=== PATIENT | male | born 1985 | race Caucasian/White ===

== ENCOUNTER 2016-09-02 11:10 | Outpatient (CLI) | payer OTHER | END 2016-09-02 11:11 | disposition home or self-care (01) | DX: I48.0 Paroxysmal atrial fibrillation (principal); I50.20 Unspecified systolic (congestive) heart failure ==

== ENCOUNTER 2017-01-17 10:46 | Emergency (ER) | payer SELFPAY ==
[2017-01-17] MEDS: diltiaZEM INJ 5 MG/ML VIAL IVP STA (11:31)
[2017-01-17] MEDS ORDERED: SODIUM CHLORIDE FLUSH 0.9% 10 ML SYRINGE IVP ONE (11:32)
[2017-01-17] MEDS ORDERED: diltiaZEM INJ 5 MG/ML VIAL ONE (11:32)
[2017-01-17 11:36] LABS: BASOPHILS % (AUTO) 0.3 %; EOSINOPHILS # (AUTO) 0.1 10^3/uL (0.0-0.7); EOSINOPHILS % (AUTO) 1.4 %; HCT - HEMATOCRIT 47.3 % (42.0-52.0); HGB - HEMOGLOBIN 15.9 g/dL (14.0-18.0); LYMPHOCYTES # (AUTO) 2.1 10^3/uL (1.5-3.5); LYMPHOCYTES % (AUTO) 22.7 %; MEAN CORPUSCULAR HEMOGLOBIN 26.1 pg (27.0-31.0); MEAN CORPUSCULAR HGB CONC 33.6 g/dL (32.0-36.0); MEAN CORPUSCULAR VOLUME 77.6 fL (80.0-94.0); MEAN PLATELET VOLUME 10.5 fL (7.4-11.4); MONOCYTES # (AUTO) 0.6 10^3/uL (0.0-1.0); NEUTROPHILS # (AUTO) 6.3 10^3/uL (1.5-6.6); NEUTROPHILS % (AUTO) 68.6 %; NUCLEATED RED BLOOD CELLS AUTO 0.1 /100WBC; RED BLOOD COUNT 6.09 10^6/uL (4.70-6.10); RED CELL DISTRIBUTION WIDTH 13.6 % (12.0-15.0); UNCORRECTED WHITE BLOOD COUNT 9.2 x10^3/uL; WHITE BLOOD COUNT 9.2 x10^3/uL (4.8-10.8)
[2017-01-17 11:45] LABS: ALBUMIN/GLOBULIN RATIO 1.4 (1.0-2.2); CALCIUM 10.3 mg/dL (8.5-10.3); POTASSIUM 4.1 mmol/L (3.5-5.0)
[2017-01-17] MEDS: SODIUM CHLORIDE 0.9% 1,000 ML IV ONE (12:34)
--- NOTE | 2017-01-17 12:40 | XRAY Preliminary Report ---
Exam: XR Chest 2 View PA/LAT IMPRESSION: Normal 2-view chest radiography. [facility] SITE ID: [id number]
--- NOTE | 2017-01-17 12:43 | XRAY Report ---
EXAM: CHEST RADIOGRAPHY EXAM DATE: 01/17/2017 11:58 AM. CLINICAL HISTORY: Rapid afib cough. COMPARISON: None. TECHNIQUE: 2 views. FINDINGS: Lungs/Pleura: No focal opacities evident. No pleural effusion. No pneumothorax. Normal volumes. Mediastinum: Heart and mediastinal contours are unremarkable. Other: None. IMPRESSION: Normal 2-view chest radiography. [facility] Referring Provider Line: [phone] SITE ID: [id number]
[2017-01-17] MEDS ORDERED: PROPOFOL 200 MG/20 ML VIAL IVP ONE (14:13)
[2017-01-17] MEDS: PROPOFOL 200 MG/20 ML VIAL IVP STA (14:20)
[2017-01-17 14:36] VITALS: BP 118/74
[2017-01-17] MEDS ORDERED: DEXAMETHASONE 10 MG/ML VIAL ONE (14:45)
--- NOTE | 2017-01-17 14:58 | ED Physician Documentation ---
History of Present Illness - Stated complaint Stated Complaint: RACING HEART - Chief complaint Chief Complaint: Cardiac - History obtained from History obtained from: Patient, Family - History of Present Illness Timing: Today - Additonal information Additional information: 31-year-old male with a history of atrial fibrillation once previously woke this morning feeling a rapid irregular heart. He has some mild dyspnea on exertion associated with this. He does state that he checks his pulse frequently on his neck since this episode in October. He has not been in atrial fibrillation to his knowledge since October. He does indicate that he has been ill recently with a cough and congestion and has been taking some [id number] decongestant. He denies excessive use of any medications.He did have excessive use of energy drinks in October. In that episode he was cardioverted at [facility]. Review of Systems Constitutional: denies: Fever, Chills Eyes: denies: Decreased vision Ears: reports: Loss of hearing, Ear pain Nose: reports: Rhinorrhea / runny nose, Congestion Throat: denies: Sore throat Cardiac: reports: Palpitations. denies: Chest pain / pressure Respiratory: reports: Dyspnea, Cough GI: denies: Abdominal Pain, Nausea, Vomiting : denies: Dysuria, Frequency PD PAST MEDICAL HISTORY - Past Medical History Past Medical History: Yes Cardiovascular: Atrial fibrillation Respiratory: Asthma - Past Surgical History Past Surgical History: Yes HEENT: Tonsil/Adenoidectomy - Present Medications Home Medications: Ambulatory Orders Medication Instructions Recorded Confirmed Albuterol 1 puffs PO PRN 01/17/17 Azithromycin [Zithromax] 250 mg PO DAILY #6 tablet 01/17/17 Metoprolol Tartrate 25 mg PO DAILY 01/17/17 01/17/17 Montelukast [Singulair] 10 mg PO DAILY 01/17/17 01/17/17 - Allergies Allergies/Adverse Reactions: Allergies Allergy/AdvReac Type Severity Reaction Status Date / Time No Known Drug Allergies Allergy Verified 01/17/17 10:50 - Social History Does the pt smoke?: No Smoking Status: Current every day smoker Does the pt drink ETOH?: No Does the pt have substance abuse?: No PD ED PE NORMAL - Vitals Vital signs reviewed: Yes (tachy ) - General General: Alert and oriented X 3, No acute distress, Well developed/nourished - HEENT HEENT: Atraumatic, PERRL, EOMI, Other (both TM's are inflamed the left is much more inflamed than the right. ) - Neck Neck: Supple, no meningeal sign, No bony TTP - Cardiac Cardiac: No murmur, Other (irregularly irregular and rapid) - Respiratory Respiratory: No respiratory distress, Clear bilaterally - Abdomen Abdomen: Soft, Non tender - Back Back: No CVA TTP, No spinal TTP - Derm Derm: Normal color, No rash - Extremities Extremities: No deformity, No edema - Neuro Neuro: No motor deficit, No sensory deficit - Psych Psych: Normal mood, Normal affect Results - Vitals Vitals: Vital Signs - 24 hr 01/17/17 01/17/17 01/17/17 10:48 11:10 11:32 Temperature 35.9 C L Heart Rate 122 H 155 H 114 H Respiratory 18 21 13 Rate Blood Pressure 120/78 102/71 107/74 O2 Saturation 95 95 95 01/17/17 01/17/17 01/17/17 11:36 11:37 11:56 Temperature Heart Rate 108 H 100 98 Respiratory 23 18 16 Rate Blood Pressure 93/59 L 102/64 108/62 O2 Saturation 95 96 96 01/17/17 01/17/17 01/17/17 12:34 12:54 14:07 Temperature Heart Rate 98 104 H 88 Respiratory 16 15 Rate Blood Pressure 88/66 L 94/56 L 105/75 O2 Saturation 96 98 97 01/17/17 01/17/17 01/17/17 14:15 14:20 14:23 Temperature Heart Rate 109 H 119 H 120 H Respiratory 16 18 11 L Rate Blood Pressure 111/88 H 105/77 O2 Saturation 96 92 01/17/17 01/17/17 01/17/17 14:29 14:35 14:36 Temperature Heart Rate 76 78 70 Respiratory 15 16 16 Rate Blood Pressure 101/69 118/74 118/74 O2 Saturation 97 97 97 Oxygen O2 Source Room air - EKG (time done) 1057 Rate: Rate (enter#) (151) Rhythm: Atrial fibrillation Ischemia: Non specific changes Compare to prior EKG: Old EKG unavailable Computer interpretation: Agree with computer 1431 Rate: Rate (enter#) (76) Rhythm: NSR Compare to prior EKG: Other (SPT earlier today the rhythm has converted. ) Computer interpretation: Agree with computer - Labs Labs: Laboratory Tests 01/17/17 01/17/17 01/17/17 11:05 11:05 11:05 WBC 9.2 RBC 6.09 Hgb 15.9 Hct 47.3 MCV 77.6 L MCH 26.1 L MCHC 33.6 RDW 13.6 Plt Count 200 MPV 10.5 Neut # 6.3 Lymph # 2.1 [place] # 0.6 Eos # 0.1 Baso # 0.0 Absolute Nucleated RBC 0.01 Nucleated RBCs 0.1 Sodium 140 Potassium 4.1 Chloride 105 Carbon Dioxide 25 Anion Gap 10.0 BUN 17 Creatinine 1.0 Estimated GFR (MDRD) 87 L Glucose 109 H Calcium 10.3 Total Bilirubin 1.0 AST 54 H ALT 107 H Alkaline Phosphatase 116 Troponin I < 0.04 Total Protein 8.0 Albumin 4.6 Globulin 3.4 Albumin/Globulin Ratio 1.4 Lipase 20 L - Rads (name of study) 2 view chest Radiology: Prelim report reviewed (Impression: Normal two-view chest radiography.) Procedures - Procedural sedation Sedation prep: Informed consent, Time out completed, PE performed, AHA 1 - healthy, IV O2 monitor, ET CO2 monitor, RT present Sedation medications: propofol, given by MD Patient status during sedation: Responds to tactile, Maintained airway Sedation recovery: Recovered uneventfully, Back to baseline - Cardioversion Attempt 1 Time of attempt: 14:19 Risks, benefits, alternatives explained to: Pt Prep: IV, O2, resistance brazer, Pulse ox, Airway equip Meds: Propofol CS via: Anterolateral Sync: Biphasic, 100j Post cardioversion rhythm: A-fib Performed by: ED Attempt 2 Time of attempt: 14:22 Indication: Tachyarrhythmia Risks, benefits, alternatives explained to: Pt Prep: IV, O2, resistance brazer, Pulse ox, Airway equip Meds: Propofol CS via: Anterolateral Sync: Biphasic, 150j Post cardioversion rhythm: NSR Performed by: ED PD MEDICAL DECISION MAKING - ED course Complexity details: reviewed results, re-evaluated patient, considered differential, d/w patient, d/w family ED course: 31-year-old male with acute atrial fibrillation and rapid ventricular response is given intravenous diltiazem with reduction in his rate and he does not convert after several hours in the emergency department he is administered 100 mg of propofol and converted with synchronized shock at 150 J. Initial shock at 100 J synchronized did not work. The patient has had a cough for 10 days and on exam has OM on the left. He is given a dose of decadron here as well. Departure - Departure Disposition: 01 Home, Self Care Clinical Impression: Atrial fibrillation Qualifiers: Atrial fibrillation type: paroxysmal Qualified Code(s): I48.0 - Paroxysmal atrial fibrillation Otitis media Qualifiers: Otitis media type: suppurative Laterality: bilateral Chronicity: acute Recurrence: not specified as recurrent Spontaneous tympanic membrane rupture: without spontaneous rupture Qualified Code(s): H66.003 - Acute suppurative otitis media without spontaneous rupture of ear drum, bilateral Condition: Stable Instructions: ED Afib, ED Otitis Media Acute Adult Follow-Up: Hanh Lowe PA-C [Primary Care Provider] - Prescriptions: Azithromycin [Zithromax] 250 mg PO DAILY #6 tablet Comments: Today it appears he was in atrial fibrillation with a rapid ventricular response and required 150 J of synchronized energy to convert your rhythm. In the future avoid medications with stimulatory effects. Atrial fibrillation will require a follow up appointment with a business solution analyst. In addition it appears the cold you have has resulted in a middle ear infection and you will need to be on an antibiotic for 5 days. Discharge Date/Time: 01/17/17 15:19
[2017-01-17] MEDS: DEXAMETHASONE 10 MG/ML VIAL PO STA (15:08)
== END 2017-01-17 15:19 | disposition home or self-care (01) ==
LOC: ED 10:46
DX: I48.0 Paroxysmal atrial fibrillation (principal); H66.003 Acute suppurative otitis media without spontaneous rupture of ear drum, bilateral; J45.909 Unspecified asthma, uncomplicated; F17.200 Nicotine dependence, unspecified, uncomplicated
CPT/HCPCS: 36415; 71020; 80053; 83690; 84484; 85025; 92960; 93005; 94770; 96374; 99152; 99284

== ENCOUNTER 2017-06-21 15:15 | Outpatient (CLI) | payer OTHER ==
[2017-06-21 19:11] LABS: BASOPHILS % (AUTO) 0.5 %; EOSINOPHILS # (AUTO) 0.2 10^3/uL (0.0-0.7); EOSINOPHILS % (AUTO) 3.3 %; HGB - HEMOGLOBIN 13.7 g/dL (14.0-18.0); LYMPHOCYTES # (AUTO) 1.8 10^3/uL (1.5-3.5); LYMPHOCYTES % (AUTO) 31.9 %; MEAN CORPUSCULAR HEMOGLOBIN 26.2 pg (27.0-31.0); MEAN CORPUSCULAR HGB CONC 32.7 g/dL (32.0-36.0); MEAN CORPUSCULAR VOLUME 79.9 fL (80.0-94.0); MONOCYTES # (AUTO) 0.4 10^3/uL (0.0-1.0); MONOCYTES % (AUTO) 6.6 %; NEUTROPHILS # (AUTO) 3.3 10^3/uL (1.5-6.6); NEUTROPHILS % (AUTO) 57.7 %; PLT - PLATELET COUNT 157 10^3/uL (130-450); RED BLOOD COUNT 5.25 10^6/uL (4.70-6.10); RED CELL DISTRIBUTION WIDTH 13.5 % (12.0-15.0); WHITE BLOOD COUNT 5.8 x10^3/uL (4.8-10.8)
[2017-06-21 19:38] LABS: % IRON SATURATION 15 % (20-50); ALBUMIN 4.1 g/dL (3.2-5.5); ALBUMIN/GLOBULIN RATIO 1.4 (1.0-2.2); ALKALINE PHOSPHATASE 62 IU/L (42-121); ALT ALANINE AMINOTRANSFERASE 31 IU/L (10-60); AST ASPARTATE AMINOTRANSFERASE 16 IU/L (10-42); BILIRUBIN,TOTAL 0.3 mg/dL (0.2-1.0); BUN - BLOOD UREA NITROGEN 13 mg/dL (6-20); CALCIUM 9.1 mg/dL (8.5-10.3); CARBON DIOXIDE - CO2 27 mmol/L (21-32); CHLORIDE 107 mmol/L (101-111); CHOL/HDL RATIO 6.5 (<5.0); CHOLESTEROL 207 mg/dL; CREATININE 0.8 mg/dL (0.6-1.2); GFR - MDRD 112 (>89); GLUCOSE 79 mg/dL (70-100); HDL CHOLESTEROL 32 mg/dL; IRON 53 ug/dL (45-182); LDL CHOLESTEROL,CALCULATED 130 mg/dL; LDL/HDL RATIO 4.1 (<3.6); SODIUM 137 mmol/L (135-145); TOTAL IRON BINDING CAPACITY 346 ug/dL (250-450); TOTAL PROTEIN 7.1 g/dL (6.7-8.2); TRANSFERRIN 247 mg/dL (180-329); VLDL CHOLESTEROL 45 mg/dL
[2017-06-22 12:42] LABS: HEPATITIS B SURFACE ANTIGEN NON-REACTIVE (NON-REACTIVE)
[2017-06-22 15:27] LABS: HEPATITIS C ANTIBODY NON-REACTIVE (NON-REACTIVE)
== END 2017-06-21 15:16 ==
LOC: LAB.WCP 15:15
PROVIDERS: ATTEND Physician Assistant Medical
DX: Z51.81 Encounter for therapeutic drug level monitoring (principal); R74.8 Abnormal levels of other serum enzymes; I48.0 Paroxysmal atrial fibrillation
CPT/HCPCS: 36415; 80053; 80061; 83540; 84443; 84466; 85025; 86317; 86704; 86803; 87340

== ENCOUNTER 2017-08-29 22:29 | Emergency (ER) | payer OTHER ==
[2017-08-29] MEDS ORDERED: PROCAINAMIDE 1,000 MG in SODIUM CHLORIDE 0.9% 240 ML IV STA (22:49)
[2017-08-29] MEDS ORDERED: SODIUM CHLORIDE 0.9% 1,000 ML IV ONE (22:49)
[2017-08-29 22:56] LABS: BASOPHILS # (AUTO) 0.1 10^3/uL (0.0-0.1); BASOPHILS % (AUTO) 0.7 %; EOSINOPHILS # (AUTO) 0.2 10^3/uL (0.0-0.7); EOSINOPHILS % (AUTO) 2.7 %; HGB - HEMOGLOBIN 15.3 g/dL (14.0-18.0); LYMPHOCYTES # (AUTO) 2.9 10^3/uL (1.5-3.5); LYMPHOCYTES % (AUTO) 30.7 %; MEAN CORPUSCULAR HEMOGLOBIN 26.8 pg (27.0-31.0); MEAN CORPUSCULAR HGB CONC 34.4 g/dL (32.0-36.0); MEAN CORPUSCULAR VOLUME 78.1 fL (80.0-94.0); MEAN PLATELET VOLUME 10.3 fL (7.4-11.4); MONOCYTES # (AUTO) 0.7 10^3/uL (0.0-1.0); MONOCYTES % (AUTO) 7.1 %; NEUTROPHILS # (AUTO) 5.5 10^3/uL (1.5-6.6); NEUTROPHILS % (AUTO) 58.8 %; PLT - PLATELET COUNT 173 10^3/uL (130-450); RED BLOOD COUNT 5.72 10^6/uL (4.70-6.10); RED CELL DISTRIBUTION WIDTH 13.5 % (12.0-15.0); WHITE BLOOD COUNT 9.3 x10^3/uL (4.8-10.8)
[2017-08-29] MEDS ORDERED: PROPOFOL 200 MG/20 ML VIAL IVP ONE (23:45)
[2017-08-29] MEDS ORDERED: fentaNYL 100 MCG/2 ML VIAL ONE (23:45)
[2017-08-29 23:51] LABS: ALBUMIN 4.4 g/dL (3.2-5.5); ALBUMIN/GLOBULIN RATIO 1.7 (1.0-2.2); CALCIUM 9.2 mg/dL (8.5-10.3); CREATININE 1.1 mg/dL (0.6-1.2); PHOSPHORUS 2.8 mg/dL (2.5-4.6)
[2017-08-29 23:53] LABS: BILIRUBIN,TOTAL 0.6 mg/dL (0.2-1.0); MAGNESIUM 2.1 mg/dL (1.7-2.8)
[2017-08-30] MEDS ORDERED: PROPOFOL 200 MG/20 ML VIAL IVP ONE (01:50)
--- NOTE | 2017-08-30 02:19 | ED Physician Documentation ---
PD HPI CHEST PAIN - Stated complaint Stated Complaint: CHEST PX - Chief complaint Chief Complaint: Cardiac - History obtained from History obtained from: Patient, Family - History of Present Illness Timing - onset: Today Timing - details: Abrupt onset, Still present Quality: Pressure Associated symptoms: Palpitations Similar symptoms before: Work up / diagnostics, Treatment Recently seen: Not recently seen - Additional information Additional information: Patient is a 32 year old male with a history of a fib who is presenting to the emergency department for chest pain and palpitations. According to patient and family patient woke from sleep with his heart racing and chest pressure. Patient states that he has been compliant with his A fib. He reports that most of the time he has to get shocked out of it. Review of Systems Constitutional: denies: Fever, Chills Eyes: reports: Reviewed and negative Ears: reports: Reviewed and negative Nose: reports: Reviewed and negative Throat: reports: Reviewed and negative Cardiac: reports: Chest pain / pressure, Palpitations Respiratory: denies: Dyspnea, Cough GI: denies: Abdominal Pain, Nausea, Vomiting : reports: Reviewed and negative Skin: reports: Reviewed and negative Musculoskeletal: reports: Reviewed and negative Neurologic: denies: Generalized weakness, Focal weakness, Numbness Immunocompromised: denies: Immunocompromised PD PAST MEDICAL HISTORY - Past Medical History Past Medical History: Yes Cardiovascular: Atrial fibrillation Respiratory: Asthma, Sleep apnea Neuro: None Endocrine/Autoimmune: None GI: GERD : None HEENT: None Psych: None Musculoskeletal: None Derm: None - Past Surgical History Past Surgical History: Yes HEENT: Tonsil/Adenoidectomy - Present Medications Home Medications: Ambulatory Orders Medication Instructions Recorded Confirmed Albuterol 1 puffs PO PRN 01/17/17 Azithromycin [Zithromax] 250 mg PO DAILY #6 tablet 01/17/17 Metoprolol Tartrate 25 mg PO DAILY 01/17/17 01/17/17 Montelukast [Singulair] 10 mg PO DAILY 01/17/17 01/17/17 - Allergies Allergies/Adverse Reactions: Allergies Allergy/AdvReac Type Severity Reaction Status Date / Time No Known Drug Allergies Allergy Verified 08/29/17 22:42 - Social History Does the pt smoke?: No Smoking Status: Never smoker Does the pt drink ETOH?: No Does the pt have substance abuse?: No - Immunizations Immunizations are current?: Yes - POLST Patient has POLST: No PD ED PE NORMAL - General General: Alert and oriented X 3 - HEENT HEENT: Atraumatic - Neck Neck: Supple, no meningeal sign - Respiratory Respiratory: No respiratory distress - Abdomen Abdomen: Soft, Non tender, Non distended - Derm Derm: Normal color, Warm and dry, No rash - Extremities Extremities: No deformity, No calf tenderness / cord - Neuro Neuro: Alert and oriented X 3, No motor deficit, No sensory deficit, Normal speech Eye Opening: Spontaneous Motor: Obeys Commands Verbal: Oriented GCS Score: 15 - Psych Psych: Normal mood PD ED PE EXPANDED - General General: Alert - HEENT HEENT: Dry mucous membranes Results - Vitals Vitals: Vital Signs - 24 hr 08/29/17 08/29/17 08/29/17 22:35 22:47 23:13 Temperature 36.4 C L Heart Rate 132 H 133 H 138 H Respiratory 18 20 22 Rate Blood Pressure 127/88 H O2 Saturation 99 97 97 08/29/17 08/29/17 08/29/17 23:15 23:22 23:32 Temperature Heart Rate 139 H 129 H Respiratory 17 18 Rate Blood Pressure 106/84 H 96/76 O2 Saturation 97 98 08/29/17 08/29/17 08/29/17 23:41 23:46 23:51 Temperature Heart Rate 122 H 140 H 125 H Respiratory 17 18 16 Rate Blood Pressure 121/88 H 102/79 O2 Saturation 98 98 98 08/30/17 08/30/17 08/30/17 00:07 00:22 01:12 Temperature Heart Rate 131 H 128 H 141 H Respiratory 16 15 16 Rate Blood Pressure 102/76 108/89 H 111/85 H O2 Saturation 99 99 100 08/30/17 08/30/17 08/30/17 01:20 01:21 01:23 Temperature Heart Rate 147 H 149 H Respiratory 17 20 Rate Blood Pressure 100/74 O2 Saturation 95 96 08/30/17 08/30/17 08/30/17 01:24 01:26 01:27 Temperature Heart Rate 139 H 141 H 143 H Respiratory 18 17 Rate Blood Pressure 85/64 L 106/66 O2 Saturation 98 95 98 08/30/17 08/30/17 08/30/17 01:31 01:34 01:36 Temperature Heart Rate 150 H 137 H 133 H Respiratory 14 18 Rate Blood Pressure 108/76 91/66 O2 Saturation 98 97 95 08/30/17 08/30/17 08/30/17 01:38 01:40 01:56 Temperature Heart Rate 133 H 137 H 136 H Respiratory 16 22 18 Rate Blood Pressure 87/66 L O2 Saturation 96 97 99 08/30/17 08/30/17 08/30/17 01:58 02:00 02:01 Temperature Heart Rate 130 H 148 H Respiratory 15 Rate Blood Pressure 121/62 110/71 O2 Saturation 08/30/17 08/30/17 08/30/17 02:04 02:05 02:09 Temperature Heart Rate 85 88 95 Respiratory 20 18 15 Rate Blood Pressure 96/57 L 113/74 O2 Saturation 99 97 08/30/17 02:10 Temperature Heart Rate Respiratory 16 Rate Blood Pressure O2 Saturation Oxygen O2 Source Nasal cannula - Labs Labs: Laboratory Tests 08/29/17 08/29/17 08/29/17 22:39 22:39 22:39 WBC 9.3 RBC 5.72 Hgb 15.3 Hct 44.7 MCV 78.1 L MCH 26.8 L MCHC 34.4 RDW 13.5 Plt Count 173 MPV 10.3 Neut # 5.5 Lymph # 2.9 [place] # 0.7 Eos # 0.2 Baso # 0.1 Absolute Nucleated RBC 0.01 Nucleated RBC % 0.1 Sodium 137 Potassium 4.0 Chloride 105 Carbon Dioxide 23 Anion Gap 9.0 BUN 21 H Creatinine 1.1 Estimated GFR (MDRD) 78 L Glucose 105 H Calcium 9.2 Phosphorus 2.8 Magnesium 2.1 Total Bilirubin 0.6 AST 23 ALT 46 Alkaline Phosphatase 71 Troponin I < 0.04 Total Protein 7.0 Albumin 4.4 Globulin 2.6 Albumin/Globulin Ratio 1.7 Lipase 16 L TSH 08/29/17 22:39 WBC RBC Hgb Hct MCV MCH MCHC RDW Plt Count MPV Neut # Lymph # [place] # Eos # Baso # Absolute Nucleated RBC Nucleated RBC % Sodium Potassium Chloride Carbon Dioxide Anion Gap BUN Creatinine Estimated GFR (MDRD) Glucose Calcium Phosphorus Magnesium Total Bilirubin AST ALT Alkaline Phosphatase Troponin I Total Protein Albumin Globulin Albumin/Globulin Ratio Lipase TSH 3.16 Procedures - Cardioversion Attempt 1 Time of attempt: 02:00 Indication: Tachyarrhythmia Risks, benefits, alternatives explained to: Pt, POA Prep: IV, O2, supervisor international reservations, Pulse ox, Airway equip Meds: Fentanyl, Propofol CS via: Pads Sync: Monophasic, 200j Post cardioversion rhythm: NSR Complications: No: Contact burn, Apnea, Hypotension Performed by: ED MD PD MEDICAL DECISION MAKING - ED course Complexity details: reviewed old records, reviewed results, re-evaluated patient , considered differential, d/w patient, d/w family ED course: Patient was seen and examined at bedside. IV access was gained, labs were drawn. ekg was performed and patient was found to be in A-fib. Procainamide drip of 1000mg over an hour was attempted without conversion. It was decided to elctrically cardiovert the patient. (see note) Patient was successfully cardioverted with conscious sedation at 200joules. patient tolerated the treatment well and was stable for discharge with outpatient follow up. Departure - Departure Disposition: 01 Home, Self Care Clinical Impression: Atrial fibrillation Condition: Good Instructions: Atrial Fibrillation Dc Follow-Up: Phillip Dorman MD [Physician No Access] - Comments: Your symptoms today were being caused by a fib, which has resolved. You should continue with your medications as prescribed. You should follow up with your heart doctor for further evaluation and care. You may return to the emergency department at any time for new, worsening or uncontrollable symptoms. Forms: Activity restrictions
[2017-08-30 02:22] VITALS: BP 91/76
== END 2017-08-30 02:35 | disposition home or self-care (01) ==
LOC: ED 22:29
DX: I48.91 Unspecified atrial fibrillation (principal)
CPT/HCPCS: 36415; 80053; 83690; 83735; 84100; 84443; 84484; 85025; 96365; 99284; 99285; J2690; 92960; 93005

== ENCOUNTER 2017-09-05 13:00 | Outpatient (CLI) | payer OTHER | END 2017-09-05 13:01 | disposition home or self-care (01) | LOC: SC 13:00 | PROVIDERS: ATTEND Internal Medicine Pulmonary Disease | DX: G47.33 Obstructive sleep apnea (adult) (pediatric) (principal) | CPT/HCPCS: 99203; 99212 ==

== ENCOUNTER 2017-10-22 21:16 | Outpatient (CLI) | payer OTHER | END 2017-10-22 21:17 | disposition home or self-care (01) | LOC: SC 21:16 | PROVIDERS: ATTEND Internal Medicine Pulmonary Disease | DX: G47.33 Obstructive sleep apnea (adult) (pediatric) (principal); I48.91 Unspecified atrial fibrillation | CPT/HCPCS: 95810 ==

== ENCOUNTER 2017-10-23 01:45 | Emergency (ER) | payer OTHER ==
[2017-10-23] MEDS ORDERED: fentaNYL 100 MCG/2 ML VIAL IVP STA (01:55)
[2017-10-23] MEDS ORDERED: PROPOFOL 200 MG/20 ML VIAL IVP STA (01:55)
[2017-10-23 02:21] LABS: BASOPHILS % (AUTO) 0.6 %; EOSINOPHILS # (AUTO) 0.3 10^3/uL (0.0-0.7); EOSINOPHILS % (AUTO) 3.6 %; HGB - HEMOGLOBIN 15.9 g/dL (14.0-18.0); LYMPHOCYTES % (AUTO) 33.8 %; MEAN CORPUSCULAR HEMOGLOBIN 26.4 pg (27.0-31.0); MEAN CORPUSCULAR HGB CONC 34.1 g/dL (32.0-36.0); MEAN CORPUSCULAR VOLUME 77.4 fL (80.0-94.0); MEAN PLATELET VOLUME 10.8 fL (7.4-11.4); MONOCYTES # (AUTO) 0.9 10^3/uL (0.0-1.0); MONOCYTES % (AUTO) 10.2 %; NEUTROPHILS # (AUTO) 4.6 10^3/uL (1.5-6.6); NEUTROPHILS % (AUTO) 51.8 %; PLT - PLATELET COUNT 155 10^3/uL (130-450); RED BLOOD COUNT 6.03 10^6/uL (4.70-6.10); RED CELL DISTRIBUTION WIDTH 13.8 % (12.0-15.0); WHITE BLOOD COUNT 8.9 x10^3/uL (4.8-10.8)
[2017-10-23 02:40] LABS: ALBUMIN 4.5 g/dL (3.2-5.5); ALBUMIN/GLOBULIN RATIO 1.4 (1.0-2.2); BILIRUBIN,TOTAL 0.5 mg/dL (0.2-1.0); CALCIUM 10.3 mg/dL (8.5-10.3); CREATININE 0.9 mg/dL (0.6-1.2); MAGNESIUM 1.7 mg/dL (1.7-2.8); PHOSPHORUS 3.8 mg/dL (2.5-4.6); TOTAL PROTEIN 7.7 g/dL (6.7-8.2)
--- NOTE | 2017-10-23 02:41 | ED Physician Documentation ---
History of Present Illness - Stated complaint Stated Complaint: AFIB - Chief complaint Chief Complaint: Cardiac - History obtained from History obtained from: Patient - History of Present Illness Timing: Today - Additonal information Additional information: Patient is a 32 year old male with a history of a fib who is presenting to the emergency department for an irregular heart rate. patient was getting a sleep study done tonight when he woke up and felt like he was in a fib. patient has been in the emergency department multiple times before for similar sensation and normally only responds to electrical cardioversion. Review of Systems Ten Systems: 10 systems reviewed and negative Constitutional: denies: Fever, Chills Cardiac: reports: Palpitations GI: denies: Nausea, Vomiting PD PAST MEDICAL HISTORY - Past Medical History Cardiovascular: Atrial fibrillation Respiratory: Asthma, Sleep apnea Endocrine/Autoimmune: None GI: GERD : None HEENT: None Psych: None Musculoskeletal: None Derm: None - Past Surgical History Past Surgical History: Yes HEENT: Tonsil/Adenoidectomy - Present Medications Home Medications: Ambulatory Orders Medication Instructions Recorded Confirmed Albuterol 1 puffs PO PRN 01/17/17 Azithromycin [Zithromax] 250 mg PO DAILY #6 tablet 01/17/17 Metoprolol Tartrate 25 mg PO DAILY 01/17/17 01/17/17 Montelukast [Singulair] 10 mg PO DAILY 01/17/17 01/17/17 - Allergies Allergies/Adverse Reactions: Allergies Allergy/AdvReac Type Severity Reaction Status Date / Time No Known Drug Allergies Allergy Verified 08/29/17 22:42 - Social History Does the pt smoke?: No Smoking Status: Never smoker Does the pt drink ETOH?: No Does the pt have substance abuse?: No - Immunizations Immunizations are current?: Yes - POLST Patient has POLST: No PD ED PE NORMAL - Vitals Vital signs reviewed: Yes - General General: Alert and oriented X 3, No acute distress - HEENT HEENT: Atraumatic, Moist mucous membranes - Neck Neck: No JVD - Respiratory Respiratory: No respiratory distress - Abdomen Abdomen: Soft - Derm Derm: Normal color, Warm and dry - Extremities Extremities: No deformity - Neuro Neuro: Alert and oriented X 3 Eye Opening: Spontaneous - Psych Psych: Normal mood PD ED PE EXPANDED - Cardiac Cardiac: Tachy, Irregularly irregular Results - Vitals Vitals: Vital Signs - 24 hr 10/23/17 10/23/17 10/23/17 01:53 02:02 02:06 Temperature 36.4 C L Heart Rate 121 H 168 H Respiratory 19 15 Rate Blood Pressure 114/94 H 99/83 H Blood Pressure 99/83 H [Right] O2 Saturation 95 98 10/23/17 10/23/17 10/23/17 02:12 02:13 02:24 Temperature Heart Rate 87 93 100 Respiratory 13 13 18 Rate Blood Pressure 113/89 H 106/79 94/68 Blood Pressure [Right] O2 Saturation 96 96 98 10/23/17 10/23/17 02:27 02:31 Temperature Heart Rate 97 100 Respiratory 16 15 Rate Blood Pressure 96/75 109/77 Blood Pressure [Right] O2 Saturation 95 96 Oxygen O2 Source Room air - EKG (time done) 0158 Rate: Rate (enter#) (114) Rhythm: Atrial fibrillation [facility]: Normal Intervals: Normal [place] Compare to prior EKG: Changed from prior EKG 0219 Rate: Rate (enter#) (88) Rhythm: NSR [facility]: Normal Intervals: Normal [place] Compare to prior EKG: Changed from prior EKG - Labs Labs: Laboratory Tests 10/23/17 10/23/17 01:50 01:50 WBC 8.9 RBC 6.03 Hgb 15.9 Hct 46.7 MCV 77.4 L MCH 26.4 L MCHC 34.1 RDW 13.8 Plt Count 155 MPV 10.8 Neut # 4.6 Lymph # 3.0 [place] # 0.9 Eos # 0.3 Baso # 0.0 Absolute Nucleated RBC 0.00 Nucleated RBC % 0.0 Troponin I < 0.04 Procedures - Cardioversion Attempt 1 Time of attempt: 02:10 Indication: Tachyarrhythmia, Hypotension Risks, benefits, alternatives explained to: Pt Prep: IV, O2, environmental monitoring technician, Pulse ox, Airway equip Meds: Fentanyl, Propofol CS via: Pads Sync: 200j Post cardioversion rhythm: NSR Performed by: ED MD [facility] MEDICAL DECISION MAKING - ED course Complexity details: reviewed old records, reviewed results, re-evaluated patient , considered differential, d/w patient, d/w family ED course: Patient was seen and examined at bedside. Previous note were reviewed and showed that the patient was difficult to cardiovert chemically. IV access was gained and labs were drawn. consent was gained and patient was treated with 100mg propofol and 75mcg of fentanyl. Patient was successfully cardioverted on the first attempt at 200J. Patient's labs were within normal limits. patient required no further work up and was stable for discharge with outpatient follow up. Departure - Departure Disposition: 01 Home, Self Care Clinical Impression: Atrial fibrillation Condition: Good Instructions: Atrial Fibrillation Dc Follow-Up: Bria Ramirez PA [Primary Care Provider] - Comments: Your symptoms today are being caused by A fib. Your labs were within normal limits. You should continue to work with your officer lieutenant to find the cause of it. You may return to the emergency department at any time for new, worsening or uncontrollable symptoms.
[2017-10-23 02:47] VITALS: BP 100/66
== END 2017-10-23 02:57 | disposition home or self-care (01) ==
LOC: ED 01:45
DX: I48.91 Unspecified atrial fibrillation (principal)
CPT/HCPCS: 36415; 80053; 83690; 83735; 84100; 84443; 84484; 85025; 92960; 93005; 94770; 96374; 96375; 99284

== ENCOUNTER 2017-11-07 09:29 | Outpatient (CLI) | payer OTHER | END 2017-11-07 09:30 | disposition home or self-care (01) | LOC: SC 09:29 | PROVIDERS: ATTEND Internal Medicine Pulmonary Disease | DX: G47.33 Obstructive sleep apnea (adult) (pediatric) (principal) | CPT/HCPCS: 99212; 99213 ==

== ENCOUNTER 2017-12-17 19:48 | Outpatient (CLI) | payer OTHER | END 2017-12-17 19:49 | disposition home or self-care (01) | LOC: SC 19:48 | PROVIDERS: ATTEND Internal Medicine Pulmonary Disease | DX: G47.33 Obstructive sleep apnea (adult) (pediatric) (principal); G47.61 Periodic limb movement disorder | CPT/HCPCS: 95811 ==

== ENCOUNTER 2017-12-27 10:49 | Outpatient (CLI) | payer OTHER | END 2017-12-27 10:50 | disposition home or self-care (01) | LOC: SC 10:49 | PROVIDERS: ATTEND Nurse Practitioner Family | DX: G47.33 Obstructive sleep apnea (adult) (pediatric) (principal) | CPT/HCPCS: 99212; 99214 ==

== ENCOUNTER 2018-02-22 11:49 | Outpatient (CLI) | payer OTHER ==
[2018-02-22 19:02] LABS: BASOPHILS % (AUTO) 0.9 %; EOSINOPHILS # (AUTO) 0.2 10^3/uL (0.0-0.7); EOSINOPHILS % (AUTO) 3.6 %; HGB - HEMOGLOBIN 13.9 g/dL (14.0-18.0); LYMPHOCYTES # (AUTO) 1.4 10^3/uL (1.5-3.5); LYMPHOCYTES % (AUTO) 30.7 %; MEAN CORPUSCULAR HEMOGLOBIN 26.4 pg (27.0-31.0); MEAN CORPUSCULAR HGB CONC 33.5 g/dL (32.0-36.0); MEAN CORPUSCULAR VOLUME 78.8 fL (80.0-94.0); MEAN PLATELET VOLUME 10.9 fL (7.4-11.4); MONOCYTES # (AUTO) 0.4 10^3/uL (0.0-1.0); MONOCYTES % (AUTO) 9.6 %; NEUTROPHILS # (AUTO) 2.5 10^3/uL (1.5-6.6); NEUTROPHILS % (AUTO) 55.2 %; PLT - PLATELET COUNT 149 10^3/uL (130-450); RED BLOOD COUNT 5.25 10^6/uL (4.70-6.10); RED CELL DISTRIBUTION WIDTH 13.7 % (12.0-15.0); WHITE BLOOD COUNT 4.6 x10^3/uL (4.8-10.8)
[2018-02-22 19:26] LABS: HEMOGLOBIN A1C 0.56 g/dL; HEMOGLOBIN A1C % 5.6 % (4.6-6.2)
[2018-02-22 19:34] LABS: % IRON SATURATION 36 % (20-50); ALBUMIN 4.2 g/dL (3.2-5.5); ALBUMIN/GLOBULIN RATIO 1.5 (1.0-2.2); ALKALINE PHOSPHATASE 73 IU/L (42-121); ALT ALANINE AMINOTRANSFERASE 35 IU/L (10-60); AST ASPARTATE AMINOTRANSFERASE 21 IU/L (10-42); BILIRUBIN,TOTAL 0.6 mg/dL (0.2-1.0); BUN - BLOOD UREA NITROGEN 18 mg/dL (6-20); CALCIUM 9.4 mg/dL (8.5-10.3); CARBON DIOXIDE - CO2 27 mmol/L (21-32); CHLORIDE 105 mmol/L (101-111); CREATININE 0.9 mg/dL (0.6-1.2); GFR - MDRD 98 (>89); GLUCOSE 84 mg/dL (70-100); IRON 128 ug/dL (45-182); SODIUM 138 mmol/L (135-145); TOTAL IRON BINDING CAPACITY 356 ug/dL (250-450); TRANSFERRIN 254 mg/dL (180-329)
== END 2018-02-22 11:50 | disposition home or self-care (01) ==
LOC: LAB.WCP 11:49
PROVIDERS: ATTEND Physician Assistant
DX: Z00.00 Encounter for general adult medical examination without abnormal findings (principal); R42 Dizziness and giddiness; D64.9 Anemia, unspecified
CPT/HCPCS: 36415; 80053; 83036; 83540; 84443; 84466; 85025

== ENCOUNTER 2018-03-01 11:25 | Outpatient (CLI) | payer OTHER | END 2018-03-01 11:26 | disposition home or self-care (01) | LOC: DI 11:25 | PROVIDERS: ATTEND Physician Assistant | DX: R42 Dizziness and giddiness (principal); R06.02 Shortness of breath | CPT/HCPCS: 93306 ==

== ENCOUNTER 2018-08-30 08:00 | Outpatient (CLI) | payer OTHER ==
[2018-08-30 19:52] LABS: BASOPHILS % (AUTO) 0.5 %; EOSINOPHILS # (AUTO) 0.2 10^3/uL (0.0-0.7); HGB - HEMOGLOBIN 14.1 g/dL (14.0-18.0); LYMPHOCYTES # (AUTO) 1.9 10^3/uL (1.5-3.5); LYMPHOCYTES % (AUTO) 31.2 %; MEAN CORPUSCULAR HEMOGLOBIN 26.1 pg (27.0-31.0); MEAN CORPUSCULAR HGB CONC 32.5 g/dL (32.0-36.0); MEAN CORPUSCULAR VOLUME 80.3 fL (80.0-94.0); MEAN PLATELET VOLUME 10.5 fL (7.4-11.4); MONOCYTES # (AUTO) 0.5 10^3/uL (0.0-1.0); MONOCYTES % (AUTO) 7.7 %; NEUTROPHILS # (AUTO) 3.4 10^3/uL (1.5-6.6); NEUTROPHILS % (AUTO) 56.6 %; PLT - PLATELET COUNT 176 10^3/uL (130-450); RED BLOOD COUNT 5.39 10^6/uL (4.70-6.10); RED CELL DISTRIBUTION WIDTH 14.9 % (12.0-15.0)
[2018-08-30 20:13] LABS: ALBUMIN 4.3 g/dL (3.2-5.5); ALBUMIN/GLOBULIN RATIO 1.6 (1.0-2.2); ALKALINE PHOSPHATASE 81 IU/L (42-121); ALT ALANINE AMINOTRANSFERASE 48 IU/L (10-60); AST ASPARTATE AMINOTRANSFERASE 26 IU/L (10-42); BILIRUBIN,TOTAL 0.9 mg/dL (0.2-1.0); BUN - BLOOD UREA NITROGEN 18 mg/dL (6-20); CALCIUM 9.7 mg/dL (8.5-10.3); CARBON DIOXIDE - CO2 27 mmol/L (21-32); CHLORIDE 105 mmol/L (101-111); CHOL/HDL RATIO 7.5 (<5.0); CHOLESTEROL 240 mg/dL; CREATININE 0.9 mg/dL (0.6-1.2); GFR - MDRD 97 (>89); GLUCOSE 105 mg/dL (70-100); HDL CHOLESTEROL 32 mg/dL; LDL CHOLESTEROL,CALCULATED 135 mg/dL; LDL/HDL RATIO 4.2 (<3.6); SODIUM 138 mmol/L (135-145); VLDL CHOLESTEROL 73 mg/dL
== END 2018-08-30 23:59 | disposition home or self-care (01) ==
LOC: LAB.WCP 08:00
PROVIDERS: ATTEND Physician Assistant
DX: Z00.00 Encounter for general adult medical examination without abnormal findings (principal); R74.8 Abnormal levels of other serum enzymes; E78.5 Hyperlipidemia, unspecified; D64.9 Anemia, unspecified
CPT/HCPCS: 36415; 80053; 80061; 83721; 84443; 85025

== ENCOUNTER 2018-09-19 10:38 | Outpatient (CLI) | payer OTHER | END 2018-09-19 10:39 | disposition home or self-care (01) | LOC: NS 10:38 | PROVIDERS: ATTEND Physician Assistant | DX: Z71.3 Dietary counseling and surveillance (principal); E66.9 Obesity, unspecified; Z68.38 Body mass index [BMI] 38.0-38.9, adult | CPT/HCPCS: 97802 ==

== ENCOUNTER 2019-04-03 07:00 | Outpatient (CLI) | payer OTHER ==
[2019-04-03 18:23] LABS: BASOPHILS % (AUTO) 0.5 %; EOSINOPHILS # (AUTO) 0.1 10^3/uL (0.0-0.7); EOSINOPHILS % (AUTO) 2.1 %; LYMPHOCYTES # (AUTO) 1.6 10^3/uL (1.5-3.5); LYMPHOCYTES % (AUTO) 28.3 %; MEAN CORPUSCULAR HEMOGLOBIN 25.9 pg (27.0-31.0); MEAN CORPUSCULAR VOLUME 83.4 fL (80.0-94.0); MEAN PLATELET VOLUME 12.8 fL (7.4-11.4); MONOCYTES # (AUTO) 0.4 10^3/uL (0.0-1.0); MONOCYTES % (AUTO) 6.8 %; NEUTROPHILS # (AUTO) 3.5 10^3/uL (1.5-6.6); PLT - PLATELET COUNT 196 10^3/uL (130-450); RED BLOOD COUNT 5.41 10^6/uL (4.70-6.10); RED CELL DISTRIBUTION WIDTH 13.8 % (12.0-15.0); WHITE BLOOD COUNT 5.7 x10^3/uL (4.8-10.8)
[2019-04-03 19:19] LABS: ALBUMIN 4.3 g/dL (3.2-5.5); ALBUMIN/GLOBULIN RATIO 1.4 (1.0-2.2); BILIRUBIN,TOTAL 0.8 mg/dL (0.2-1.0); CALCIUM 9.8 mg/dL (8.5-10.3); CREATININE 0.9 mg/dL (0.6-1.2); TOTAL PROTEIN 7.3 g/dL (6.7-8.2)
== END 2019-04-03 23:59 | disposition home or self-care (01) ==
LOC: LAB.WCP 07:00
PROVIDERS: ATTEND Physician Assistant
DX: R53.83 Other fatigue (principal)
CPT/HCPCS: 36415; 80053; 84403; 84443; 85025

== ENCOUNTER 2019-05-09 08:00 | Outpatient (CLI) | payer OTHER | END 2019-05-09 23:59 | disposition home or self-care (01) | LOC: LAB.WCP 08:00 | PROVIDERS: ATTEND Physician Assistant | DX: E29.1 Testicular hypofunction (principal) | CPT/HCPCS: 36415; 84403 ==

== ENCOUNTER 2019-12-25 09:14 | Outpatient (CLI) | payer OTHER ==
[2019-12-25 12:18] LABS: BASOPHILS % (AUTO) 0.6 %; EOSINOPHILS # (AUTO) 0.2 10^3/uL (0.0-0.7); EOSINOPHILS % (AUTO) 2.5 %; HGB - HEMOGLOBIN 14.4 g/dL (14.0-18.0); LYMPHOCYTES # (AUTO) 1.8 10^3/uL (1.5-3.5); LYMPHOCYTES % (AUTO) 27.6 %; MEAN CORPUSCULAR HEMOGLOBIN 26.9 pg (27.0-31.0); MEAN CORPUSCULAR HGB CONC 32.4 g/dL (32.0-36.0); MEAN PLATELET VOLUME 12.8 fL (7.4-11.4); MONOCYTES # (AUTO) 0.6 10^3/uL (0.0-1.0); NEUTROPHILS # (AUTO) 3.9 10^3/uL (1.5-6.6); NEUTROPHILS % (AUTO) 60.1 %; PLT - PLATELET COUNT 170 10^3/uL (130-450); RED BLOOD COUNT 5.36 10^6/uL (4.70-6.10); RED CELL DISTRIBUTION WIDTH 14.6 % (12.0-15.0); WHITE BLOOD COUNT 6.4 x10^3/uL (4.8-10.8)
== END 2019-12-25 23:59 | disposition home or self-care (01) ==
LOC: LAB.WCP 09:14
PROVIDERS: ATTEND Physician Assistant
DX: E29.1 Testicular hypofunction (principal); Z79.899 Other long term (current) drug therapy
CPT/HCPCS: 36415; 84403; 85025

== ENCOUNTER 2020-10-03 12:47 | Outpatient (CLI) | payer BC | END 2020-10-03 12:48 | disposition home or self-care (01) | LOC: COV 12:47 | PROVIDERS: ATTEND Surgery | DX: Z01.812 Encounter for preprocedural laboratory examination (principal); Z20.822 Contact with and (suspected) exposure to COVID-19 ==

== ENCOUNTER 2022-08-18 04:10 | Emergency (ER) | payer BC, OTHER ==
--- NOTE | 2022-08-18 04:38 | ED Physician Documentation ---
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 patient states he is normally in a regular rhythm and had been on metoprolol in the past but his lead welder stopped it. does have hx of gastric bypass as well as SAM but otherwise healthy. PD PAST MEDICAL HISTORY - Past Medical History Cardiovascular: Atrial fibrillation Respiratory: Asthma, Sleep apnea Endocrine/Autoimmune: None GI: GERD : None HEENT: None Psych: None Musculoskeletal: None Derm: None - Past Surgical History Past Surgical History: Yes HEENT: Tonsil/Adenoidectomy - Present Medications Home Medications: Ambulatory Orders Medication Instructions Recorded Confirmed Albuterol 1 puffs PO PRN 01/17/17 Azithromycin [Zithromax] 250 mg PO DAILY #6 tablet 01/17/17 Metoprolol Tartrate 25 mg PO DAILY 01/17/17 01/17/17 Montelukast [Singulair] 10 mg PO DAILY 01/17/17 01/17/17 - Allergies Allergies/Adverse Reactions: Allergies Allergy/AdvReac Type Severity Reaction Status Date / Time No Known Drug Allergies Allergy Verified 08/18/22 04:29 - Social History Does the pt smoke?: No Smoking Status: Never smoker Does the pt drink ETOH?: No Does the pt have substance abuse?: No - Immunizations Immunizations are current?: Yes - POLST Patient has POLST: No PD ED PE NORMAL - Vitals Vital signs reviewed: Yes - General General: Alert and oriented X 3, No acute distress, Well developed/nourished - HEENT HEENT: Atraumatic, PERRL, EOMI - Neck Neck: Supple, no meningeal sign - Cardiac Cardiac: Other (tachycardic rate, irregular rhythm) - Respiratory Respiratory: No respiratory distress, Clear bilaterally - Abdomen Abdomen: Non tender, Non distended - Derm Derm: Normal color, Warm and dry - Neuro Neuro: No motor deficit, No sensory deficit - Psych Psych: Normal mood, Normal affect Results - Vitals Vitals: Vital Signs - 24 hr 08/18/22 08/18/22 08/18/22 04:15 04:31 05:01 Temperature 36.7 C Heart Rate 154 H 133 H 137 H Respiratory 28 H 28 H 18 Rate Blood Pressure 135/102 H 134/90 H 130/87 H O2 Saturation 100 100 100 If not protocol 2 : Oxygen Flow, liters/minute 08/18/22 08/18/22 08/18/22 05:07 05:25 05:30 Temperature Heart Rate 137 H 94 91 Respiratory 15 10 L 17 Rate Blood Pressure 126/104 H 131/84 H 125/95 H O2 Saturation 99 97 97 If not protocol : Oxygen Flow, liters/minute 08/18/22 08/18/22 08/18/22 05:34 05:35 06:30 Temperature Heart Rate 145 H 84 79 Respiratory 35 H 17 Rate Blood Pressure 117/79 126/96 H O2 Saturation 97 100 If not protocol : Oxygen Flow, liters/minute Oxygen O2 Source Room air - EKG (time done) 0423 EKG releavant findings:: EKG personally interpreted by author of this note. Relevant findings are: Rate: Rate (enter#) (154) Rhythm: Atrial fibrillation 0586 EKG releavant findings:: EKG personally interpreted by author of this note. Relevant findings are: Rate: Rate (enter#) (90) Rhythm: NSR [place]: Normal Intervals: Normal MI QRS: Normal Ischemia: ST elevation c/w repol - Labs Labs: Laboratory Tests 08/18/22 08/18/22 04:30 04:30 WBC 6.2 RBC 5.67 Hgb 15.3 Hct 46.0 MCV 81.1 MCH 27.0 MCHC 33.3 RDW 12.0 Plt Count 196 MPV 11.7 H Neut # (Auto) 2.6 Lymph # (Auto) 2.8 [place] # (Auto) 0.6 Eos # (Auto) 0.2 Baso # (Auto) 0.0 Absolute Nucleated RBC 0.00 Nucleated RBC % 0.0 Sodium 143 Potassium 3.7 Chloride 109 Carbon Dioxide 24 Anion Gap 10.0 BUN 25 H Creatinine 0.9 Estimated GFR (MDRD) 95 Glucose 65 L Calcium 9.9 Total Bilirubin 0.3 AST 23 ALT 41 Alkaline Phosphatase 102 Total Protein 7.8 Albumin 4.5 Globulin 3.3 Albumin/Globulin Ratio 1.4 Lipase 38 Procedures - Cardioversion - Major Attempt 1 Indication: Tachyarrhythmia (afib) Risks, benefits, alternatives explained to: Pt Prep: IV CS via: AP approach Sync: 200j Post cardioversion rhythm: NSR Performed by: ED MD STEVENS Medical Decision Making - ED course ED course: 37yM presents in afib RVR. electrocardioversion to be undertaken. labwork noncontributory. patient dc'd home s/p cardioversion in NSR with HERI. return precautions given. plan to f/u cardiology. - Critical Care Time(min): 30 Time Includes: Direct patient care, Review records, Reassess patient, Document care, Coordinate care Data interpretation: Labs, Pulse ox Procedures included in critical care time: See progress note Departure - Departure Disposition: 01 Home, Self Care Clinical Impression: Afib Condition: Good Instructions: Cardioversion Dc, Sedation Procedural, ED Afib Follow-Up: Phillip Dorman MD [Physician No Access] - Comments: You are seen in the emergency department forAtrial fibrillation and underwent chemical sedation and electrical cardioversion. Please follow-up with your lead welder. Return to the emergency department for new or repeat symptoms or other concerns. Discharge Date/Time: 08/18/22 06:30
[2022-08-18 04:46] LABS: BASOPHILS % (AUTO) 0.5 %; EOSINOPHILS # (AUTO) 0.2 10^3/uL (0.0-0.7); EOSINOPHILS % (AUTO) 2.9 %; HGB - HEMOGLOBIN 15.3 g/dL (14.0-18.0); LYMPHOCYTES # (AUTO) 2.8 10^3/uL (1.5-3.5); LYMPHOCYTES % (AUTO) 44.9 %; MEAN CORPUSCULAR HGB CONC 33.3 g/dL (32.0-36.0); MEAN CORPUSCULAR VOLUME 81.1 fL (80.0-94.0); MEAN PLATELET VOLUME 11.7 fL (7.4-11.4); MONOCYTES # (AUTO) 0.6 10^3/uL (0.0-1.0); MONOCYTES % (AUTO) 9.9 %; NEUTROPHILS # (AUTO) 2.6 10^3/uL (1.5-6.6); NEUTROPHILS % (AUTO) 41.6 %; PLT - PLATELET COUNT 196 10^3/uL (130-450); RED BLOOD COUNT 5.67 10^6/uL (4.70-6.10); WHITE BLOOD COUNT 6.2 x10^3/uL (4.8-10.8)
[2022-08-18] MEDS ORDERED: PROPOFOL 200 MG/20 ML VIAL IVP STA ×2 (04:59→05:32)
[2022-08-18 05:01] LABS: ALBUMIN 4.5 g/dL (3.2-5.5); ALBUMIN/GLOBULIN RATIO 1.4 (1.0-2.2); BILIRUBIN,TOTAL 0.3 mg/dL (0.2-1.0); CALCIUM 9.9 mg/dL (8.5-10.3); CREATININE 0.9 mg/dL (0.6-1.2); POTASSIUM 3.7 mmol/L (3.5-5.0); TOTAL PROTEIN 7.8 g/dL (6.7-8.2)
[2022-08-18 07:19] VITALS: BP 126/96
--- NOTE | 2022-08-18 08:49 | XRAY Report ---
PROCEDURE: Chest 1 View X-Ray INDICATIONS: Chest Pain TECHNIQUE: One view of the chest was acquired. COMPARISON: None. FINDINGS: Surgical changes and devices: None. Lungs and pleura: No pleural effusions or pneumothorax. Lungs are clear. Mediastinum: Mediastinal contours appear normal. Heart size is normal. Bones and chest wall: No suspicious bony lesions. Overlying soft tissues appear unremarkable. IMPRESSION: No acute cardiopulmonary process. Reviewed by: Phillip Sheppard on 08/18/2022 8:47 AM PDT Approved by: Phillip Sheppard on 08/18/2022 8:47 AM PDT Station ID: [id number]
== END 2022-08-18 06:30 | disposition home or self-care (01) ==
LOC: ED 04:10
DX: I48.91 Unspecified atrial fibrillation (principal)
CPT/HCPCS: 36415; 80053; 83690; 85025; 92960; 93005; 94770; 99291

== ENCOUNTER 2022-11-17 14:39 | Outpatient (CLI) | payer BC ==
--- NOTE | 2022-11-17 15:32 | SLEEP CARE CONSULTATION ---
Information from patient questionnaire entered by Rosa Bhagat. I have reviewed and concur with the information entered by Rosa Bhagat. This document represents the service I personally performed and the decisions made by me, Kristen Mckeon ARNP. History of Present Illness Service Date and Time: 11/17/2022 1439 Reason for Visit: New patient, sleep apnea on CPAP therapy, Re-establish care Accompanied by: Sahra Chief Complaint: reports: Unrefreshed sleep, Snoring Date of Onset: most of my life Usual bedtime: 1 AM Time it takes to fall asleep: 30-40 minutes Snores at night: Yes Observed to quit breathing while asleep: Yes Sleeps alone due to snoring: No Number of times waking at night: unknown Reasons for waking at night: reports: Snoring, Gasping for air, Other (unknown reason). denies: Choking Toss, Turn, or Twitch while sleeping: Yes Recalls having dreams: No Usually gets out of bed at: 8 AM; 10-1 PM if not having to get up Feels refreshed in the morning: No Morning headache: No Sleepy or fatigued during the day: Yes Ever fallen asleep while driving: No Takes day naps: Yes (almost daily for 2 hours ) Dreams during day naps: No Prior sleep studies: Yes Additional HPI information: GLADYS BURGER was previously diagnosed to have severe, AHI 52.3, obstructive sleep apnea-hypopnea syndrome in PSG dated 10/22/2017 here a [facility] and comes in today to re-establish care. He had bariatric surgery, gastric sleeve, done in October 2019. He lost about 150 pounds. He started getting aerophagia when using his CPAP and he stopped using it. He has not used his machine since 07/2021. He comes back because he had a reoccurrence of his atrial fibrillation and is back to see if he still needs his CPAP. - Parasomnia Symptoms Ever been unable to move upon waking from sleep: No Walks in sleep: No Talks in sleep: No Ever acted out dreams in sleep: No Ever felt weak in the knees when startled or emotional: No Bothered by creepy, crawly, restless sensations in legs: No Problems with memory or concentration: Yes CPAP Compliance Data - Data Reviewed with Patient Average duration of nightly device use: 5 hours 35 minutes Compliance rate %: 7 (31/365 days used; 03/10/2021-03/09/2022) Current pressure setting (cmH2O): 12-17 Average residual AHI: 1.6 Subjective Initial Bagley Sleepiness Scale score: 5 (11/17/2022) Past Medical History Past Medical History: reports: Arrythmia (atrial fibrillation), Asthma, Attention deficit, Other (low testosterone) Social History 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 Patient is and lives in . Have you smoked in the past 12 months: No Cigarettes per day (20/pack): 15 Years of smokin Quit date: 2013 Smoking Pack Years: 7.0 Alcohol use: Yes Alcohol amount and frequency: depends, 1-2 times a month Caffeine use: Yes Caffeine amount and frequency: a lot (2 cups coffee in am, 24 hours Meredith 2-3 a day, 2-3 energ), every day Family History Family history of sleep disordered breathing: Yes Family Hx Sleep Apnea: Mother: Snoring, Father: Sleep apnea - Treated Allergies and Home Medications Known drug allergies: No Drug allergies reviewed: Yes Home medication list reviewed: Yes Allergy and home medication list: Allergies No Known Drug Allergies Allergy (Verified 11/16/22 22:13) Medications: Atomoxetine 40 mg, 2 capsules twice a day for ADHD Albuterol inhaler, prn Bariatric multivitamin --soon back on Testosterone 2 times monthly Review of Systems Weight loss over past 5 years: 150 loss after bariatric surgery Cardiovascular: reports: irregular heart rate or pulse. denies: high blood pressure Respiratory: reports: shortness of breath Gastrointestinal: denies: heartburn Neurological: denies: headaches Psychiatric: reports: Attention Deficit Hyperactivity Ear/Nose/Throat: reports: nasal congestion, injury to nose, tonsillectomy, wisdom teeth removed Endocrine: denies: thyroid disease Musculoskeletal: reports: back pain Physical Exam Vital signs obtained and entered by: Kristen Garcia NP Blood Pressure: 141/82 Cuff size: wrist (left) Heart Rate: 81 O2 Saturation: 97 Height: 6 ft 4 in Weight: 229 lb Body Mass Index: 27.8 BMI Classification: Overweight Neck circumference: 16.75 Mouth and throat: narrow oropharynx Soft palate: long Hard palate: normal Uvula: normal Uvula visualization: 0% Mallampati Class IV Tongue: enlarged in size with teeth peña on lateral edges Tonsils: absent bilaterally Neck: normal w/o lymphadenopathy or thyromegaly Heart: regular rate and rhythm Lungs: clear bilaterally Impression and Plan 1. Suspected Obstructive Sleep Apnea-Hypopnea Syndrome, as previously diagnosed and as suggested by a history of loud and irregular snoring, unrefreshed sleep, and excessive daytime sleepiness. I recommend proceeding to polysomnography to confirm the diagnosis and to assess severity. If the patient has significant sleep disordered breathing, a manual CPAP titration study will also be performed to find the optimal treatment pressure. I informed the patient of what the sleep studies involve and after some discussion, obtained agreement to proceed. The pathophysiology of obstructive sleep apnea-hypopnea syndrome was discussed with the patient and health risks of cardiovascular and cerebrovascular disease if not treated. Risks of drowsy driving discussed in detail and patient advised to avoid long distance driving and to machine tack puller at the first sign of drowsiness. Patient agreed to plan. * Schedule polysomnography +- manual CPAP titration study and return in 1-2 weeks after the study to discuss result and initiate therapy. * Avoid long distance driving or driving when feeling sleepy. * Avoid alcohol, sedative and muscle relaxant around bedtime. * Attempt to lose weight. * Review instructions provided by trained office staff on how to prepare for the sleep study. * Return for follow-up after sleep study completed. Counseling Topics: Weight loss health impact Plan: PSG/HST to re-verify after weight loss Visit Type: In Office Time Spent with Patient (minutes): 30 Provider Statement: I spent 100% of the Face to Face Visit with the patient with greater than 50% spent counseling the patient and coordination of care.
[2022-11-17 15:34] VITALS: BP 141/82
== END 2022-11-17 14:40 | disposition home or self-care (01) ==
LOC: SC 14:39
PROVIDERS: ATTEND Nurse Practitioner Family
DX: G47.33 Obstructive sleep apnea (adult) (pediatric) (principal); Z98.84 Bariatric surgery status; Z87.891 Personal history of nicotine dependence; E66.3 Overweight; Z68.27 Body mass index [BMI] 27.0-27.9, adult
CPT/HCPCS: 99203; 99212

== ENCOUNTER 2022-12-28 12:44 | Outpatient (CLI) | payer BC | END 2022-12-28 12:45 | disposition home or self-care (01) | LOC: SC 12:44 | PROVIDERS: ATTEND Nurse Practitioner Family | DX: G47.33 Obstructive sleep apnea (adult) (pediatric) (principal); R09.02 Hypoxemia; E66.3 Overweight; Z68.27 Body mass index [BMI] 27.0-27.9, adult | CPT/HCPCS: 95806 ==

== ENCOUNTER 2023-02-17 12:49 | Outpatient (CLI) | payer BC ==
--- NOTE | 2023-02-17 13:25 | Sleep Patient Instructions ---
Sleep Center Visit Summary - Patient Visit Information Reason for Visit: Sleep study follow up - Patient Instructions Additional Instructions: You are being re-started on CPAP therapy with pressure setting at 6-10 cmH2O. You may call the office with any concerns about pressure feeling too low or too much for adjustment, if needed. You should contact DME supplier for any questions or concerns about mask or equipment. Please call office to schedule a follow up appointment in the sleep care office in 1-2 months. - Clinic Information Contact: [facility] [address] [place] [address] [email or web address] T: [phone]
--- NOTE | 2023-02-17 13:29 | SLEEP CARE CONSULTATION ---
Information from patient questionnaire entered by Rosa Bhagat. I have reviewed and concur with the information entered by Rosa Bhagat. This document represents the service I personally performed and the decisions made by , Kristen Mckeon ARNP. History of Present Illness Service Date and Time: 02/17/2023 1249 Initial [place] Sleepiness Scale score: 5 (11/17/2022) Current Rico Sleepiness Scale score: 7 (02/17/23) Additional HPI information: GLADYS BURGER returns for follow up and results of the recently performed home sleep study. His sleep study showed mild obstructive sleep apnea with an average AHI of 10.6 and jaylin oxygen saturation of 89%. I explained the pathophysiology behind obstructive sleep apnea. We then spent quite a bit of time discussing different treatment options. For mild obstructive sleep apnea, surgery and oral appliance are alternatives to nasal CPAP therapy but in moderate or severe cases, nasal CPAP is the most effective and reliable treatment. I reviewed the impact of weight changes on sleep apnea and strongly recommended losing weight. After some discussion, the patient opted to continue with the nasal CPAP therapy. His nasal autoCPAP will be set at 6-10 cmH20 will be ordered with ra medrano explained. A manual titration study will be ordered if unable to find optimal pressure with office adjustments. Patient counseled not drink alcohol less than 4 hours before bedtime as it can increase snoring and apnea. Patient was cautioned about risks of drowsy driving until sleepiness symptoms resolve. Patient denies drowsy driving. Sleep Study - Results Type of Sleep Study: Home sleep study (COMPLETED 12/29/22) Prior sleep studies: Yes Polysomnography/Home Sleep Study results: Physician Impression: The quality of the study is good. The length of the study is adequate (> 240 minutes). Please also see the tabulated and graphic data. 1. Obstructive Sleep Apnea-Hypopnea (ICD-10 G47.33), mild, with an AHI of 10.6 /hr and jaylin SaO2 of 89%. During the study, the patient had 24 apneas (24 obstructive, 0 central, 0 mixed) and 39 hypopneas. The longest episode lasted 110.5 seconds. The respiratory events occurred more frequently during supine sleep (supine AHI was 28.1 and non-supine, 8.52). 2. Hypoxemia (ICD-10 R09.02), minimal, with the lowest oxygen saturation of 89 % and 0.4 minutes with SaO2 under 90%. Baseline oxygen saturation was normal (Average oxygen saturation was 95%). Allergies and Home Medications Known drug allergies: No Drug allergies reviewed: Yes Home medication list reviewed: Yes Allergy and home medication list: Allergies No Known Drug Allergies Allergy (Verified 02/16/23 12:27) Home Medications Medication Instructions Recorded Confirmed Last Taken Type Metoprolol Tartrate 25 mg PO DAILY 01/17/17 02/17/23 Unknown History Dextroamphetamine/Amphetamine See Rx Instructions .ROUTE .COMPLEX 02/17/23 02/17/23 Unknown History [Adderall 10 mg Tablet] Review of Systems Review of systems same as previous: Yes (no changes) Physical Exam Vital signs obtained and entered by: ROSA Martinez MA Blood Pressure: 110/78 (LEFT ARM) Cuff size: regular Heart Rate: 71 O2 Saturation: 98 Height: 6 ft 4 in Weight: 236 lb 3.2 oz Body Mass Index: 28.7 BMI Classification: Overweight Impression and Plan 1. Obstructive Sleep Apnea-Hypopnea Syndrome, mild, with lowest oxygen saturation of 89%. Positive pressure therapy could benefit arrhythmia (Afib), asthma and attention deficit. I reviewed with patient his options for treatment and he would like to continue with CPAP therapy at a lower pressure. The patient will be resumed on nasal autoCPAP therapy with pressure set at 6-10 cmH2O. Compliance guidelines also reviewed. A copy of compliance guidelines will be given for reference at check out. 2. Overweight, unspecified. Currently patients BMI is 28.7. Obesity increases the risk of apnea, CPAP pressure requirements and overall health risks especially cardiovascular and diabetes. Thus patient is advised to continue to try to lose weight. * Transfer DME * Nasal auto CPAP therapy, pressure at 6-10 cmH2O. * Continue to try to lose weight. * Avoid alcohol consumption near bedtime. * The patient is again cautioned about driving until sleepiness completely resolves. * Return in 1-2 months for compliance visit check. I will assess response to therapy and compliance at that time. Counseling Topics: Weight loss health impact Prescriptions: Device supplies Visit Type: In Office Time Spent with Patient (minutes): 25 Provider Statement: I spent 100% of the Face to Face Visit with the patient with greater than 50% spent counseling the patient and coordination of care.
[2023-02-17 13:39] VITALS: BP 110/78; O2SAT 98
== END 2023-02-17 12:50 | disposition home or self-care (01) ==
LOC: SC 12:49
PROVIDERS: ATTEND Nurse Practitioner Family
DX: G47.33 Obstructive sleep apnea (adult) (pediatric) (principal); E66.3 Overweight; Z68.28 Body mass index [BMI] 28.0-28.9, adult
CPT/HCPCS: 99212; 99213